=== PATIENT | male | born 1985 | race Caucasian/White ===

== ENCOUNTER 2016-03-27 10:33 | Emergency (ER) | payer OTHER, BC ==
[2016-03-27] MEDS ORDERED: LIDOCAINE 1% W/EPI MPF 10 ML SOL INFIL ONE (11:19)
[2016-03-27] MEDS ORDERED: LIDOCAINE 2% W/ EPI MPF 20 ML SOL ONE (11:20)
[2016-03-27] MEDS ORDERED: BACITRACIN 500 U/GM OIN TOP ONE ×2 (11:44→11:45)
[2016-03-27 12:02] VITALS: RESP 16
[2016-03-27 12:20] VITALS: TEMP 98.2
[2016-03-27 12:50] VITALS: BP 139/94
[2016-03-27 12:51] VITALS: PULSE 84; O2SAT 99
== END 2016-03-27 11:54 | disposition home or self-care (01) | DRG 605 ==
LOC: ED 10:33
DX: S51.011A Laceration without foreign body of right elbow, initial encounter (principal); W00.0XXA Fall on same level due to ice and snow, initial encounter
CPT/HCPCS: 12001; 73070; 73090; 99283; A6402

== ENCOUNTER 2018-08-14 11:05 | Outpatient (CLI) | payer BC, OTHER ==
[2016-03-27 12:51] VITALS: O2SAT 99
== END 2018-08-14 11:06 | disposition home or self-care (01) | DRG 556 ==
LOC: CONVCARE 11:05
PROVIDERS: ATTEND Orthopaedic Surgery
DX: M25.561 Pain in right knee (principal)
CPT/HCPCS: 73560; 73565